=== PATIENT | male | born 1970 | race African-American/Black ===

== ENCOUNTER 2017-05-10 19:55 | Emergency (ER) | payer OTHER ==
--- NOTE | 2017-05-10 20:44 | PDOC ---
Rapid Medical Evaluation Time Seen by Provider: 05/10/17 20:41 Medical Evaluation: Allergies Allergy/AdvReac Type Severity Reaction Status Date / Time No Known Allergies Allergy Verified 07/04/13 17:20 05/10/17 20:41 I have performed a brief in-person evaluation of this patient. The patient presents with a chief complaint of: Possible finger infection. Sustained abrasion to R middle finger at home last week. No f/c. H/o HTN, ran out of meds "a while ago"" Pertinent physical exam findings: Elevated BP w/ abrasion to radial side of R middle finger w/ surrounding erythema and minimal swelling I have ordered the following:xray The patient will proceed to the ED for further evaluation. Discharge Disposition - Diagnosis Cellulitis of finger Qualifiers: Laterality: right Qualified Code(s): L03.011 - Cellulitis of right finger - Referrals - Patient Instructions - Post Discharge Activity
[2017-05-10 20:46] VITALS: BP 170/124; PULSE 95; TEMP 98.2; BMI 24.7
--- NOTE | 2017-05-10 23:52 | PDOC ---
History of Present Illness - General Chief Complaint: Edema Stated Complaint: HEADACHE Time Seen by Provider: 05/10/17 20:41 History Source: Patient - History of Present Illness Initial Comments: 05/10/17 23:51 46 year old male with right 3 digit cellulitis s/p cut finger on metal object several days ago. patient reports that he has pain and swelling at the site since the cut. tetanus unknown Past History - Past Medical History Allergies/Adverse Reactions: Allergies Allergy/AdvReac Type Severity Reaction Status Date / Time No Known Allergies Allergy Verified 05/10/17 20:43 Home Medications: Ambulatory Orders Cephalexin Monohydrate [Keflex -] 250 mg PO Q6H #40 capsule 05/11/17 Sulfamethoxazole/Trimethoprim [Bactrim Ds -] 1 tab PO BID #20 tablet 05/11/17 COPD: No HTN: Yes - Immunization History Immunization Up to Date: Yes - Suicide/Smoking/Psychosocial Hx Smoking Status: Yes Smoking History: Never smoked Have you smoked in the past 12 months: No Number of Cigarettes Smoked Daily: 3 Information on smoking cessation initiated: No 'Breaking Loose' booklet given: 07/04/13 Hx Alcohol Use: No Drug/Substance Use Hx: No Substance Use Type: None *Physical Exam - Vital Signs Last Vital Signs Temp Pulse Resp BP Pulse Ox 98.2 F 95 H 20 170/124 99 05/10/17 20:44 05/10/17 20:44 05/10/17 20:44 05/10/17 20:44 05/10/17 20:44 - Physical Exam General Appearance: Yes: Appropriately Dressed Integumentary: positive: Erythema (right third digit with erythema, mild streaking to the finger) *DC/Admit/Observation/Transfer Diagnosis at time of Disposition: Cellulitis of finger Qualifiers: Laterality: right Qualified Code(s): L03.011 - Cellulitis of right finger - Discharge Dispostion Disposition: HOME - Prescriptions Prescriptions: Cephalexin Monohydrate [Keflex -] 250 mg PO Q6H #40 capsule Sulfamethoxazole/Trimethoprim [Bactrim Ds -] 1 tab PO BID #20 tablet - Referrals Referrals: Talha Martínez MD [Staff Physician] - - Patient Instructions Printed Discharge Instructions: DI for Cellulitis -- Adult Additional Instructions: soak finger in warm water q3 hour as tolerated take ceophalexin and bactrim as ordered. follow up with your doctor in 2 days for a wound check. return to the ED if symptoms worsen. - Post Discharge Activity Forms/Work/School Notes: Back to Work
[2017-05-10] MEDS ORDERED: TETANUS AND DIPHTHERIA TOXOID 0.5 ML DISP.SYRIN IM ONE (23:56)
[2017-05-11] MEDS ORDERED: SULFAMETHOXAZOLE/TRIMETHOPRIM 800MG/160MG D.S. TABLET PO ONE (00:22)
[2017-05-11] MEDS ORDERED: IBUPROFEN 600 MG TABLET (FP) PO ONE ×2 (00:22→00:26)
[2017-05-11] MEDS ORDERED: CEPHALEXIN MONOHYDRATE 500 MG CAPSULE (UD) PO ONE (00:23)
[2017-05-11] MEDS ORDERED: CEPHALEXIN MONOHYDRATE 250 MG CAPSULE (FP) ONE (00:26)
[2017-05-11] MEDS ORDERED: SULFAMETHOXAZOLE/TRIMETHOPRIM 800MG/160MG D.S. TABLET ONE (00:26)
--- NOTE | 2017-05-11 00:30 | PDOC ---
*Physical Exam - Vital Signs Last Vital Signs Temp Pulse Resp BP Pulse Ox 98.2 F 95 H 20 170/124 99 05/10/17 20:44 05/10/17 20:44 05/10/17 20:44 05/10/17 20:44 05/10/17 20:44 ED Treatment Course - Medications Given in the ED: ED Medications Discontinued Medications Generic Name Dose Route Start Last Admin Trade Name Freq PRN Reason Stop Dose Admin Tetanus/Diphtheria Toxoids Adsorbed 0.5 ml 05/10/17 23:56 05/11/17 00:11 Decavac IM 05/10/17 23:57 0.5 ml .ONCE ONE Administration Medical Decision Making - Medical Decision Making 05/11/17 00:30 agree with care from GISELLE Antony *DC/Admit/Observation/Transfer Diagnosis at time of Disposition: Cellulitis of finger Qualifiers: Laterality: right Qualified Code(s): L03.011 - Cellulitis of right finger - Discharge Dispostion Disposition: HOME - Prescriptions Prescriptions: Cephalexin Monohydrate [Keflex -] 250 mg PO Q6H #40 capsule Sulfamethoxazole/Trimethoprim [Bactrim Ds -] 1 tab PO BID #20 tablet - Referrals Referrals: Talha Martínez MD [Staff Physician] - - Patient Instructions Printed Discharge Instructions: DI for Cellulitis -- Adult Additional Instructions: soak finger in warm water q3 hour as tolerated take ceophalexin and bactrim as ordered. follow up with your doctor in 2 days for a wound check. return to the ED if symptoms worsen. - Post Discharge Activity Forms/Work/School Notes: Back to Work
== END 2017-05-11 00:36 | disposition home or self-care (01) ==
LOC: JERFT 19:55 → JER 19:55
PROC: 3E0234Z Introduction of Serum, Toxoid and Vaccine into Muscle, Percutaneous Approach (ICD-10-PCS; principal; 2017-05-10)
DX: L03.011 Cellulitis of right finger (principal); X58.XXXA Exposure to other specified factors, initial encounter; Y93.89 Activity, other specified; Y92.9 Unspecified place or not applicable
CPT/HCPCS: 73140-TC-RT-FY; 99281-25

== ENCOUNTER 2017-11-12 17:48 | Emergency (ER) | payer OTHER ==
[2017-11-12 18:07] VITALS: BMI 23.7
[2017-11-12] MEDS ORDERED: KETOROLAC TROMETHAMINE 30 MG/1 ML VIAL IM ONE (18:28)
[2017-11-12] MEDS ORDERED: KETOROLAC TROMETHAMINE 30 MG/1 ML VIAL ONE (18:32)
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
[2017-11-12 19:20] VITALS: PULSE 98; TEMP 98.2
[2017-11-12] MEDS ORDERED: LABETALOL HCL 5 MG/1 ML (200MG/40ML VIAL) IVPB ONE ×2 (19:24→20:13)
[2017-11-12] MEDS ORDERED: LABETALOL HCL 5 MG/1 ML (100MG/20 ML VIAL) IVPUSH ONE ×2 (19:35→20:10)
[2017-11-12] MEDS ORDERED: amLODIPine BESYLATE 10 MG TABLET (FP) PO ONE (20:09)
[2017-11-12] MEDS ORDERED: dilTIAZem HCL 125 MG/25 ML - 25 ML VIAL ONE (20:10)
[2017-11-12] MEDS ORDERED: amLODIPine BESYLATE 5 MG TABLET (FP) ONE (20:11)
[2017-11-12 20:59] VITALS: BP 164/106
== END 2017-11-12 20:59 | disposition home or self-care (01) ==
LOC: JERFT 17:48
PROC: 3E0233Z Introduction of Anti-inflammatory into Muscle, Percutaneous Approach (ICD-10-PCS; principal; 2017-11-12)
PROC: 3E033GC Introduction of Other Therapeutic Substance into Peripheral Vein, Percutaneous Approach (ICD-10-PCS; 2017-11-12)
DX: S69.81XA Other specified injuries of right wrist, hand and finger(s), initial encounter (principal); W50.1XXA Accidental kick by another person, initial encounter; Y93.F9 Activity, other caregiving; Y92.112 Bedroom in children's home and orphanage as the place of occurrence of the external cause; Y99.0 Civilian activity done for income or pay; I10 Essential (primary) hypertension
CPT/HCPCS: 73110-TC-RT-FY; 73130-TC-RT-FY; 99281-25

== ENCOUNTER 2023-08-03 16:23 | Emergency (ER) | payer OTHER ==
[2023-08-03 16:38] VITALS: TEMP 98.2; BMI 24.3
[2023-08-03 17:26] LABS: BASO % 0.7 % (0-2.0); EOS % 1.3 % (0-4.5); HEMATOCRIT 39.9 % (35.4-49); HEMOGLOBIN 13.1 GM/dL (11.7-16.9); LYMPH % 18.5 % (8-40); MCHC 32.9 g/dl (32.0-35.9); MEAN CELL VOLUME 91.4 fl (80-96); MEAN PLT VOLUME 8.4 fl (7.5-11.1); MONO % 8.9 % (3.8-10.2); NEUT % 70.6 % (42.8-82.8); PLATELET COUNT 192 10^3/uL (134-434); RBC 4.36 M/mm3 (4.00-5.60); RDW 12.8 % (11.9-15.9); WHITE BLOOD COUNT 6.7 K/mm3 (4.0-10.0)
[2023-08-03 17:32] LABS: INR 0.99 (0.83-1.09); PROTHROMBIN TIME (PATIENT) 11.4 SEC (9.7-13.0)
[2023-08-03 17:35] LABS: ACTIVATED PTT 31.1 SECONDS (25.2-36.5)
[2023-08-03] MEDS ORDERED: METOCLOPRAMIDE HCL INJECTION 10 MG/2 ML VIAL ONE (17:35)
[2023-08-03] MEDS ORDERED: ACETAMINOPHEN INJECTION 100 ML IVPB ONE (17:36)
[2023-08-03] MEDS: METOCLOPRAMIDE HCL INJECTION 10 MG/2 ML VIAL IVPUSH ONE (17:42)
[2023-08-03] MEDS: ACETAMINOPHEN 1000 MG/100 ML BAG IVPB ONE (17:42)
[2023-08-03 17:46] LABS: POTASSIUM 3.7 mmol/L (3.5-5.1)
[2023-08-03 17:49] LABS: BLOOD UREA NITROGEN 12.8 mg/dL (7-18)
[2023-08-03 17:52] LABS: CREATININE 0.8 mg/dL (0.55-1.3)
[2023-08-03 17:54] LABS: BILIRUBIN,TOTAL 0.5 mg/dL (0.2-1); TOT PROT 7.5 g/dl (6.4-8.2)
[2023-08-03] MEDS ORDERED: CARVEDILOL 6.25 MG TABLET (FP) ONE (18:18)
[2023-08-03 18:26] VITALS: RESP 16
[2023-08-03] MEDS: CARVEDILOL 12.5 MG TABLET (FP) PO ONE (18:27)
[2023-08-03 20:13] VITALS: BP 162/100; PULSE 76
== END 2023-08-03 20:52 | disposition home or self-care (01) ==
LOC: JER 16:23
PROC: 3E033NZ Introduction of Analgesics, Hypnotics, Sedatives into Peripheral Vein, Percutaneous Approach (ICD-10-PCS; principal; 2023-08-03)
PROC: 3E033GC Introduction of Other Therapeutic Substance into Peripheral Vein, Percutaneous Approach (ICD-10-PCS; 2023-08-03)
DX: I10 Essential (primary) hypertension (principal); J32.9 Chronic sinusitis, unspecified; R42 Dizziness and giddiness; R20.2 Paresthesia of skin
CPT/HCPCS: 36415; 70450-TC; 71045-TC-FY; 80053; 84484; 85025; 85610; 85730; 93005; 93010; 99285-25; J0131